=== PATIENT | male | born 1980 | race Two or more races ===

== ENCOUNTER 2017-08-28 02:16 | Emergency (ER) | payer OTHER ==
[~2017-08-28] VITALS: Ht 188 cm; Wt 157.4 kg
[2017-08-28 03:58] VITALS: BP 125/73
[2017-08-28] MEDS ORDERED: TRIAMCINOLONE 40MG/ML 1ML VIAL IM ONE (04:15)
[2017-08-28] MEDS ORDERED: cefTRIAXone SOD 1,000 MG VL IM ONE (04:30)
[2017-08-28] MEDS ORDERED: LIDOCAINE 2% (LOCAL ANESTH.) PF 5ml SDV ONE (07:04)
== END 2017-08-28 04:49 | disposition home or self-care (01) ==
LOC: ER 02:16
DX: J02.9 Acute pharyngitis, unspecified (principal); R60.9 Edema, unspecified; H66.90 Otitis media, unspecified, unspecified ear; F17.210 Nicotine dependence, cigarettes, uncomplicated
CPT/HCPCS: 71046; 96372; 99284; J0696; J3301

== ENCOUNTER 2020-08-16 06:03 | Emergency (ER) | payer MEDICAID ==
[~2020-08-16] VITALS: Ht 188 cm; Wt 136.1 kg
[2020-08-16 06:16] VITALS: BP 113/63
== END 2020-08-16 07:48 | disposition left against medical advice (07) ==
LOC: ER 06:03
DX: M25.561 Pain in right knee (principal); Z53.21 Procedure and treatment not carried out due to patient leaving prior to being seen by health care provider

== ENCOUNTER 2021-08-21 | Emergency (ER) | payer MEDICAID ==
[~2021-08-21] VITALS: Ht 172.7 cm; Wt 108.9 kg
[2021-08-21] MEDS ORDERED: CALCIUM CHLOR(10%) 100MG/ML 10ML SYRINGE IV ONE ×2 (00:01)
[2021-08-21] MEDS ORDERED: SODIUM BICARBONATE 8.4% INJ 50ML SYRINGE IV ONE (00:01)
[2021-08-21] MEDS ORDERED: EPINEPHrine HCL 1 MG/10 ML SYRG IV ONE ×2 (00:01)
[2021-08-21] MEDS ORDERED: ATROPINE SULF 1 MG/10ml SYR IV ONE ×2 (00:01)
[2021-08-21] MEDS ORDERED: ALBUTEROL SULF 2.5 MG/0.5ML(0.5%) NEB SOLN ONE (00:12)
[2021-08-21] MEDS ORDERED: LIDOCAINE HCL 2 %PF INJ 10ML AMP IJ ONE (00:12)
[2021-08-21] MEDS ORDERED: EPINEPHrine HCL 0.5 ML NEB NEB ONE ×2 (00:15)
[2021-08-21] MEDS ORDERED: TRANEXAMIC ACID 10 ML ONE (00:27)
[2021-08-21] MEDS ORDERED: LIDOCAINE W/ EPINEPHRINE 2% INJ 20ML VIAL IJ ONE (00:30)
[2021-08-21] MEDS ORDERED: TRANEXAMIC ACID IV ONE (00:30)
[2021-08-21] MEDS ORDERED: SODIUM CHL 0.9% IV ONE (00:30)
[2021-08-21] MEDS ORDERED: ETOMIDATE (2MG/ML) 20ML VIAL IV ONE ×2 (00:39→00:45)
[2021-08-21] MEDS ORDERED: SUCCINYLCHOLINE CHLORIDE 20 MG/ML 10ML VIAL IV ONE ×3 (00:39→01:15)
[2021-08-21 00:52] LABS: Basophils # (auto) 0.1 10 ^3/uL (0-0.2); Basophils % (auto) 0.5 % (0.0-2.0); Eosinophils # (auto) 0.1 10 ^3/uL (0-0.8); Eosinophils % (auto) 0.3 % (0.0-7.0); Hematocrit 38.3 % (41.0-53.0); Lymphocytes # (auto) 3.3 10 ^3/uL (0.4-5.4); Lymphocytes % (auto) 16.1 % (10.0-50.0); Mean Corpuscular Hemoglobin 29.4 pg (28.0-32.0); Mean Corpuscular Volume 86.4 fL (80.0-100.0); Monocytes # (auto) 1.6 10 ^3/uL (0-1.3); Monocytes % (auto) 7.9 % (0.0-12.0); Neutrophils # (auto) 15.4 10 ^3/uL (1.6-8.6); Neutrophils % (auto) 75.2 % (37.0-80.0); Red Blood Cells 4.43 10^6/uL (4.5-5.90); White Blood Cell 20.5 10^3/uL (4.4-10.8)
[2021-08-21] MEDS ORDERED: fentaNYL Drip 2500mCg/250mlNS 250 ML IV SCH ×2 (01:00→03:30)
[2021-08-21] MEDS ORDERED: MIDAZOLAM DRIP 50 mg/50mL 50 ML IV SCH ×2 (01:00→03:30)
[2021-08-21] MEDS ORDERED: PROPOFOL 100 ML IV SCH (01:00)
[2021-08-21] MEDS ORDERED: MIDAZOLAM DRIP 50 mg/50mL 50 ML IV ONE (01:05)
[2021-08-21] MEDS ORDERED: PROPOFOL 100 ML IV ONE (01:05)
[2021-08-21 01:11] LABS: Albumin 3.3 g/dL (3.4-5.0); BUN/Creatinine Ratio 30.3; Calcium 8.5 mg/dL (8.5-10.1); Potassium 4.5 mmol/L (3.5-5.1)
[2021-08-21 01:12] LABS: INR 1.05 (0.9-1.15); Partial Thromboplastin Time 28.2 sec (23.6-33.0)
[2021-08-21 01:14] LABS: Bilirubin, Total 0.8 mg/dL (0.2-1.0); Total Protein 6.7 g/dL (6.4-8.2)
[2021-08-21] MEDS ORDERED: EPINEPHrine HCL 1 MG/10 ML SYRG ONE (01:49)
[2021-08-21] MEDS ORDERED: NOREPINEPHRINE 8 MG/250ML KIT 250 ML IV ONE (01:58)
[2021-08-21] MEDS ORDERED: EPINEPHrine HCL 250 ML IV ONE (02:03)
[2021-08-21] MEDS ORDERED: PHENYLEPHRINE IV 250 ML IV ONE (02:27)
[2021-08-21] MEDS ORDERED: ALBUMIN 25% 200 ML IV ONE (02:54)
[2021-08-21] MEDS ORDERED: HYDROCORTISONE SOD SUCC 100 MG/2ML INJ VIAL ONE (02:55)
[2021-08-21] MEDS ORDERED: VASOPRESSIN 20 UNIT/ML ONE ×2 (02:59→03:02)
[2021-08-21] MEDS ORDERED: EPINEPHrine HCL 250 ML IV SCH (03:30)
[2021-08-21] MEDS ORDERED: PHENYLEPHRINE IV 250 ML IV SCH (03:30)
[2021-08-21] MEDS ORDERED: VASOPRESSIN 50 UNITS in D5W 5% 247.5 ML IV SCH (03:30)
[2021-08-21] MEDS ORDERED: ALBUMIN 25% 100 ML IV ONE (03:30)
[2021-08-21 04:44] VITALS: BP 123/36
== END 2021-08-21 05:10 | disposition short-term general hospital (02) ==
LOC: ER
DX: J95.830 Postprocedural hemorrhage of a respiratory system organ or structure following a respiratory system procedure (principal); R57.8 Other shock; F17.210 Nicotine dependence, cigarettes, uncomplicated; Z90.89 Acquired absence of other organs
CPT/HCPCS: 31500; 36415; 36430; 71045; 80053; 85025; 85610; 85730; 86850; 86900; 86901; 86920; 92950; 93005; 94640; 96365; 96366; 96368; 99291; J0171; J0330; J1720; J2250; J2370; J2704; J7060; P9016; P9017; P9047